=== PATIENT | male | born 1985 | race American Indian/Alaskan Native ===

== ENCOUNTER 2016-12-24 05:58 | Day surgery (SDC) | payer MEDICAID ==
[2016-12-15 15:03] VITALS: BMI 34.0
[2016-12-24 06:24] VITALS: RESP 20
[2016-12-24] MEDS ORDERED: ceFAZolin 2 GM in Sodium Chloride 0.9% 100 ML IVPB ONE (07:03)
[2016-12-24] MEDS ORDERED: Lidocaine 1% Inj (20ml) IJ ONE (07:03)
[2016-12-24] MEDS ORDERED: Bupivacaine 0.5% 50 ML IJ ONE (07:03)
--- NOTE | 2016-12-24 07:07 | CP.SDSHP ---
Same Day Surgery H & P - History Proposed Procedure: Debridement of L leg ulcer, Removal of hardware foot Pre-Op Diagnosis: Left leg wound, paiful hardware in left leg - Allergies Allergies: Allergies nut - unspecified Allergy (Verified 02/21/16 14:30) ANAPHYLAXIS shellfish derived Allergy (Verified 02/21/16 14:30) ANAPHYLAXIS - Physical Exam Vital Signs: Vital Signs 12/24/16 12/24/16 06:23 06:26 Temperature 98.7 F Pulse Rate 95 H 95 H Respiratory 20 Rate Blood Pressure 144/90 O2 Sat by Pulse 99 Oximetry Mental Status: Alert & Oriented x3 Neuro: WNL Heart: WNL Lungs: WNL - {Optional Preform as Required} Integument: Other Ortho: Other - Impression Impression: Pt was seen and examined in SDS. Pt NPO status was confirmed. All Pre-op testing and clearance was in the chart. Pt has exhausted all conservative treatment at this time and is opting for surgical intervention. Pt was explained procedure and post-operative course. All pt's questions were answered to satisfaction. No guarantees were made. Pt understands all risks, benefits and complications of procedure. Pt will follow-up with Dr. Sanchez Short Stay Discharge - Short Stay Discharge Admitting Diagnosis/Reason for Visit: T81.31X Disposition: HOME/ ROUTINE Referrals: Yolanda Hilton MD [Primary Care Provider] - Additional Instructions (Diet, Activity): Patient in good/stable condition for discharge home. Pt to resume medications per medical reconciliation. Resume regular diet. Please keep dressing clean, dry, & intact to surgical site, use plastic bag over bandage for showering, wear post op shoe at all times when ambulating, call clinic if you see signs of infection (redness, swelling, malodor), please make an appointment to see Dr. Sanchez in office/clinic within 1 week for post-op check. Progress Note/Discharge Note with Instructions: - Patient evaluated bedside in recovery s/p surgical procedure. - After surgical procedure patient in NAD - (+) Void, (+) Appetite - Capillary refill time <3s and NVSI intact. - Patient denies complaints at this time - Post operative instructions and plan of care explained to patient at length. - Pt. acknowledges understanding. - Patient stable for DC per podiatric surgery
--- NOTE | 2016-12-24 07:13 | CP.PCM.PN ---
Subjective - Date & Time of Evaluation Date of Evaluation: 12/24/16 Time of Evaluation: 07:09 - Subjective Subjective: 31 y/o male with no significant PMHx seen at bedside in [facility] for left leg wound debridement and removal of painful hardware. Patient states that he sustained the wounds after the injury to the left ankle. Patient states that he has been NPO since midnight and denies of any adverse reaction to anesthesia. Patient denies of any recent F/N/V/C/SOB/CP today. PMHx: Denies PSHx: Denies Allergies: nuts Objective - Vital Signs/Intake and Output Vital Signs (last 24 hours): Temp Pulse Resp BP Pulse Ox 98.7 F 95 H 20 144/90 99 12/24/16 06:23 12/24/16 06:26 12/24/16 06:23 12/24/16 06:23 12/24/16 06:23 - Medications Medications: Current Medications Bupivacaine HCl (Marcaine 0.5% 50 Ml) 50 ml IJ ONCE ONE Stop: 12/24/16 07:04 Cefazolin Sodium 2 gm/ Sodium (Chloride) 100 mls @ 100 mls/hr IVPB ONCE ONE Stop: 12/24/16 08:02 Sodium Chloride (Sodium Chloride 0.9%) 1,000 mls @ 120 mls/hr IV .Q8H20M JASSI Stop: 12/25/16 07:03 Lidocaine HCl (Lidocaine 1% (20ml)) 20 ml IJ ONCE ONE Stop: 12/24/16 07:04 - Constitutional Appears: Well, Non-toxic, No Acute Distress - Extremities Exam Additional comments: Left LE exam: VASC: DP/PT pulses are palpable 2/4, Cap refill time: < 3 sec to all digits, Temp gradient: Warm to cool from proximal to distal, non-pitting edema noted on the distal left leg as well as dorsum of the foot DERM: diffuse approximately 1 cm x 1 cm wounds noted on the medial and lateral aspect of the left leg, no active drainage, no purulence, no malodor, no tunneling, no undermining NEURO: protective sensation grossly intact ORTHO: Mild tenderness on passive and active ROM at the left ankle joint, no pain on palpation of the wounds - Neurological Exam Neurological Exam: Alert, Awake, Oriented x3 - Psychiatric Exam Psychiatric exam: Normal Affect, Normal Mood Assessment and Plan - Assessment and Plan (Free Text) Assessment: 31 y/o male seen at bedside in [facility] for left leg wound debridement and possible removal of painful hardware Plan: Pt was seen and examined in [facility] Pt NPO status was confirmed All Pre-op testing and clearance was in the chart Pt has exhausted all conservative treatment at this time and is opting for surgical intervention Pt was explained procedure and post-operative course All pt's questions were answered to satisfaction No guarantees were made Pt understands all risks, benefits and complications of procedure Pt will follow-up with Dr. Sanchez
[2016-12-24] MEDS ORDERED: ePHEDrine 50 mg/ml Inj ONE (07:15)
[2016-12-24] MEDS ORDERED: Propofol 10 mg/ml Inj (20 ML) ONE (07:15)
[2016-12-24] MEDS ORDERED: Sodium Chloride 0.9% 1,000 ML IV SCH (07:15)
[2016-12-24] MEDS ORDERED: Rocuronium 10 mg/ml (5 ml) ONE (07:15)
[2016-12-24] MEDS ORDERED: Succinylcholine 200 mg/10 ml Inj IV ONE (07:15)
[2016-12-24] MEDS ORDERED: Lidocaine 2% MPF (5 ml) Inj ONE (07:16)
[2016-12-24] MEDS ORDERED: Bupivacaine 0.5% Inj(30mL) ONE (07:32)
[2016-12-24] MEDS ORDERED: Lidocaine 1% Inj (20ml) ONE (07:32)
[2016-12-24] MEDS ORDERED: Dexamethasone 4 mg/1 ml ONE (07:32)
[2016-12-24] MEDS ORDERED: Lactated Ringer's 1,000 ML IV ONE ×2 (07:45→08:50)
[2016-12-24] MEDS ORDERED: Midazolam 2 MG/2 ML VIAL ONE (07:50)
[2016-12-24] MEDS ORDERED: Sodium Chloride 0.9% 200 ML IV ONE (07:50)
[2016-12-24] MEDS ORDERED: Esmolol 100 mg/10ml Inj IV ONE (08:21)
--- NOTE | 2016-12-24 08:59 | PCM.SURG1 ---
Surgeon's Initial Post Op Note - Surgeon's Notes Surgeon: Dr. Sanchez DPM Auditing Specialist: Dr. Arzate PGY-1 Type of Anesthesia: General LMA Anesthesia Administered By: Dr. Landers Pre-Operative Diagnosis: Left leg non-healing surgical wounds, left leg painful hardware Operative Findings: see operative report. I: 20cc 1:1 mix 1% Lidocaine pl and 0.5% Marcaine pl. M: Epifix 4.0 x 4.5cm allograft. tourniquet time 35 min Post-Operative Diagnosis: same Operation Performed: left leg wound debridement, left leg removal of hardware Specimen/Specimens Removed: synthes screw Estimated Blood Loss: EBL {In ML}: 2 Blood Products Given: N/A Drains Used: No Drains Post-Op Condition: Good Date of Surgery/Procedure: 12/24/16 Time of Surgery/Procedure: 07:50
[2016-12-24] MEDS ORDERED: Oxycodone/Acetaminophen 5/325 mg Tab PO PRN ×2 (09:00)
[2016-12-24] MEDS ORDERED: HYDROmorphone 0.5 mg/0.5 ml ISec ONE (09:17)
[2016-12-24] MEDS: HYDROmorphone 0.5 mg/0.5 ml ISec IVP PRN ×3 (09:25→09:55)
[2016-12-24 11:33] VITALS: BP 114/64; PULSE 79; TEMP 98; O2SAT 98
--- NOTE | 2016-12-24 21:06 | PCM.OP ---
Operative Report - Operative Report Date of Surgery/Procedure: 12/24/16 Time of Surgery/Procedure: 07:45 Surgeon: Dr. Indra Sanchez Shellfish Harvester: Dr. Coleen Arzate Anesthesia/Sedation: Dr. Landers. general LMA Pre-Operative Diagnosis: Left leg non-healing wounds, left leg painful hardware Post-Operative Diagnosis: Left leg non-healing wounds, left leg painful hardware Indication for Surgery: The patient is a 31 year old male with the above diagnoses. The patient has exhausted all conservative treatment at this time and now requests surgical intervention. The patient signed the consent after careful explanation of risks, benefits, complication and alternatives for surgical procedure. No guarantees were given nor implied. Operative Findings: The patient was brought in to the operating room and placed on the operating room table in a supine position. Timeout was performed for identification of the correct patient and procedure. The left leg was then prepped and draped in normal sterile manner. Procedure/Operation Description: Attention was then directed to the left anteromedial ankle to the site of the patients non-healing wounds at prior surgical site. A 0.4cm diameter circular incision was made surrounding the distal most wound of the anteromedial ankle. The incision was deepened through the subcutaneous tissues using sharp and blunt dissection all the way down to bone. Care was taken to identify and retract all vital neurovascular structures. The screw was then visualized through the incision. Using a 2.7 synthes cannulated star shaped screw package delivery driver, a prominent screw was removed from the 2.7/3.5 VA-LCP plate. The wound was then flushed with copious amount of sterile normal saline solution. Attention was then directed to an additional 0.2cm diameter circular wound proximal to previous wound. A curette was then utilized to debride the wound and trigger healing. This process was then repeated to a third circular wound, approximately 0.2cm in diameter, at the anterolateral ankle. All wounds were then scrubbed copiously with a chlorhexidine scrub brush. At this time, a 4.0 cm x 4.5cm Epifix allograft was then applied to all three wound sites. The patient then received 20 cc of a 1:1 mixture of 1% lidocaine plain and 0.5% marcaine plain in a proximal ankle block type fashion. The left leg and ankle was then dressed with Adaptic, DSD and ELLA bandage. The attending was present the entire case. Estimated Blood Loss: 2cc Blood Replaced: none Complications: none Specimen: Synthes 2.7 screw Discharge & Condition: The patient tolerated the anesthesia and procedure well and was escorted to the recovery room with vital signs stable and neurovascular status intact to the right and left foot. This patient will be full weightbearing in a surgical shoe and will follow up with Dr. Sanchez in his office.
== END 2016-12-24 11:56 | disposition home or self-care (01) ==
LOC: H.OPSURG 05:58
PROVIDERS: ATTEND Podiatrist Foot & Ankle Surgery
DX: T84.84XA Pain due to internal orthopedic prosthetic devices, implants and grafts, initial encounter (principal); T81.89XA Other complications of procedures, not elsewhere classified, initial encounter; X58.XXXA Exposure to other specified factors, initial encounter; J45.909 Unspecified asthma, uncomplicated; F17.210 Nicotine dependence, cigarettes, uncomplicated
CPT/HCPCS: 20680; 88304; 97161; G8978; G8979; G8980; J0330; J0690; J1170; J2250; J2405; J2704; J3010; J7030; J7040; J7120; Q4131

== ENCOUNTER 2017-05-20 12:54 | Observation (INO) | payer MEDICAID ==
[2017-05-17 13:26] VITALS: BMI 36.0
[2017-05-20] MEDS ORDERED: Lactated Ringer's 1,000 ML IV ONE ×2 (14:02→18:30)
--- NOTE | 2017-05-20 15:12 | CP.PCM.PN ---
Subjective - Date & Time of Evaluation Date of Evaluation: 05/20/17 Time of Evaluation: 15:27 - Subjective Subjective: 31 y/o male with no significant PMHx seen at bedside in [facility] for ankle removal of painful hardware. Patient states that he sustained the wounds after the injury to the left ankle. Patient states that he has been NPO since midnight and denies of any adverse reaction to anesthesia. Patient denies of any recent F /N/V/C/SOB/CP today. PMHx: Denies PSHx: Denies Allergies: nuts Objective - Vital Signs/Intake and Output Vital Signs (last 24 hours): Temp Pulse Resp BP Pulse Ox 98.2 F 91 H 20 147/77 100 05/20/17 13:34 05/20/17 13:37 05/20/17 13:34 05/20/17 13:34 05/20/17 13:34 - Constitutional Appears: Well, Non-toxic, No Acute Distress - Extremities Exam Additional comments: Left LE exam: Dressing is clean, dry and intact VASC: DP/PT pulses are palpable 2/4, Cap refill time: < 3 sec to all digits, Temp gradient: Warm to cool from proximal to distal, non-pitting edema noted on the distal left leg as well as dorsum of the foot DERM: diffuse approximately 1 cm x 1 cm wounds noted on the medial and lateral aspect of the left leg, no active drainage, no purulence, no malodor, no tunneling, no undermining NEURO: protective sensation grossly intact ORTHO: Mild tenderness on passive and active ROM at the left ankle joint, no pain on palpation of the wounds - Neurological Exam Neurological Exam: Alert, Awake, Oriented x3 - Psychiatric Exam Psychiatric exam: Normal Affect, Normal Mood Assessment and Plan - Assessment and Plan (Free Text) Assessment: 31 y/o male seen at bedside in [facility] for left ankle removal of painful hardware Plan: Pt was seen and examined in [facility] Pt NPO status was confirmed All Pre-op testing and clearance was in the chart Pt has exhausted all conservative treatment at this time and is opting for surgical intervention Pt was explained procedure and post-operative course All pt's questions were answered to satisfaction No guarantees were made Pt understands all risks, benefits and complications of procedure Pt will follow-up with Dr. Sanchez
--- NOTE | 2017-05-20 15:14 | CP.SDSHP ---
Same Day Surgery H & P - History Proposed Procedure: Removal of painful hardware from Left ankle Pre-Op Diagnosis: Painful hardware in left ankle - Allergies Allergies: Allergies nut - unspecified Allergy (Verified 02/21/16 14:30) ANAPHYLAXIS shellfish derived Allergy (Verified 02/21/16 14:30) ANAPHYLAXIS - Physical Exam Vital Signs: Vital Signs 05/20/17 05/20/17 13:34 13:37 Temperature 98.2 F Pulse Rate 80 91 H Respiratory 20 Rate Blood Pressure 147/77 O2 Sat by Pulse 100 Oximetry - {Optional Preform as Required} Ortho: Other - Date & Time Date: 05/20/17 Time: 15:14 Short Stay Discharge - Short Stay Discharge Admitting Diagnosis/Reason for Visit: T84.498D Disposition: HOME/ ROUTINE Referrals: Yolanda Hilton MD [Primary Care Provider] - Progress Note/Discharge Note with Instructions: Patient will be admitted to the hospital for observation for 23 hours
[2017-05-20] MEDS ORDERED: Lidocaine 1% Inj (20ml) IJ ONE ×3 (15:15→15:56)
[2017-05-20] MEDS ORDERED: ceFAZolin IV 2 gm in Dextrose 2 GM/50 ML BAG IVPB ONE (15:15)
[2017-05-20] MEDS ORDERED: Bupivacaine 0.5% Inj(30mL) IJ ONE (15:15)
[2017-05-20] MEDS ORDERED: Propofol 10 mg/ml Inj (20 ML) ONE (15:31)
[2017-05-20] MEDS ORDERED: Midazolam 2 MG/2 ML VIAL ONE (15:31)
[2017-05-20] MEDS ORDERED: Lidocaine 1% 5ml Abboject IV ONE (15:31)
[2017-05-20] MEDS ORDERED: Lidocaine 1% Inj (20ml) ONE (15:39)
[2017-05-20] MEDS ORDERED: Bupivacaine 0.5% Inj(30mL) ONE (15:39)
[2017-05-20] MEDS ORDERED: Bupivacaine 0.5% 50 ML IJ ONE ×2 (15:56)
[2017-05-20] MEDS ORDERED: HYDROmorphone 0.5 mg/0.5 ml ISec IVP PRN (19:26)
[2017-05-20] MEDS ORDERED: Lactated Ringer's 1,000 ML IV SCH (19:30)
--- NOTE | 2017-05-20 19:52 | PCM.SURG1 ---
Surgeon's Initial Post Op Note - Surgeon's Notes Surgeon: Dr. Indra Sanchez DPM Machine Stitcher: Dr. Thomas Sanford DPM PGY-1, Dr. Emery Trejo DPM PGY-1 Type of Anesthesia: General LMA, Local Anesthesia Administered By: Dr. Anya APODACA Pre-Operative Diagnosis: Painful hardware in left ankle Operative Findings: See dictation. M: 3-0 vicryl, 2-0 vicryl, 4-0 prolene. I: 20 cc of 1:1 mixture of 1% lidocain plain: 0.5% marcain plain Post-Operative Diagnosis: Same Operation Performed: Removal of hardware from left ankle Specimen/Specimens Removed: Ankle hardware Estimated Blood Loss: EBL {In ML}: 40 Blood Products Given: N/A Drains Used: No Drains Post-Op Condition: Good Date of Surgery/Procedure: 05/20/17 Time of Surgery/Procedure: 19:15
[2017-05-20] MEDS: Sodium Chloride 0.9% 1,000 ML IV SCH (22:00)
[2017-05-20] MEDS: Oxycodone/Acetaminophen 5/325 mg Tab PO PRN (22:31)
[2017-05-21] MEDS: Oxycodone/Acetaminophen 5/325 mg Tab PO PRN ×3 (00:28→05:02)
[2017-05-21] MEDS: Sodium Chloride 0.9% 1,000 ML IV SCH (06:30)
[2017-05-21 08:16] VITALS: RESP 20; O2SAT 96
[2017-05-21] MEDS ORDERED: Pantoprazole 40 mg EC Tab PO SCH (09:00)
--- NOTE | 2017-05-21 09:13 | RAD ---
PROCEDURE: HISTORY: s/p left ankle surgery COMPARISON: 04/22/2016 TECHNIQUE: Multiple views FINDINGS: Status post removal previously noted orthopedic hardware with new fixation pins and screws in the distal fibula and distal tibia with numerous subchondral lucencies particularly along the tibial plafond. Good anatomic alignment. Diffuse soft tissue swelling. Evidence of disuse osteoporosis. IMPRESSION: As above.
--- NOTE | 2017-05-21 09:14 | CP.PCM.DIS ---
Provider - Provider Date of Admission: 05/20/17 19:27 Attending physician: Indra Sanchez DPM Primary care physician: Yolanda Hilton MD Hospital Course - Lab Results Lab Results: Micro Results 05/20/17 19:00 Foot - Left Gram Stain - Final Most Recent Lab Values POC Glucose (mg/dL) 97 mg/dL (65-110) 05/21/17 05:00 Discharge Plan - Follow Up Plan Condition: GOOD Disposition: HOME/ ROUTINE Referrals: Yolanda Hilton MD [Primary Care Provider] -
--- NOTE | 2017-05-21 11:15 | CP.PCM.PN ---
Subjective - Date & Time of Evaluation Date of Evaluation: 05/21/17 Time of Evaluation: 07:30 - Subjective Subjective: 32 year old male with no significant PMHx was seen and evaluated at bedside this morning 1 day s/p removal of hardware from left ankle. Patient appears to be resting comfortably in bed during the time of the visit. Patient is AAOx3 and is in NAD. Patient denied of any acute overnight events. Patient reports that he has little pain today but he is managing it well. Patient denies of overnight F/N/V/C/SOB/CP/headache/diarrhea. Patient denies of any other pedal complains at this time. Patient reports that he is anxious to go home. Objective - Vital Signs/Intake and Output Vital Signs (last 24 hours): Temp Pulse Resp BP Pulse Ox 98.4 F 92 H 20 137/88 96 05/21/17 08:15 05/21/17 08:15 05/21/17 08:15 05/21/17 08:15 05/21/17 08:15 Intake and Output: 05/21/17 05/21/17 06:59 18:59 Intake Total 200 Balance 200 - Medications Medications: Current Medications Acetaminophen (Tylenol 325mg Tab) 650 mg PO Q6 PRN PRN Reason: Pain, Mild (1-3) Sodium Chloride (Sodium Chloride 0.9%) 1,000 mls @ 140 mls/hr IV .Q7H9M [facility] Stop: 05/21/17 15:16 Last Admin: 05/21/17 06:30 Dose: Not Given Oxycodone/Acetaminophen (Percocet 5/325 Mg Tab) 1 tab PO Q4 PRN PRN Reason: Pain, moderate (4-7) Stop: 05/23/17 19:23 Last Admin: 05/21/17 05:02 Dose: 1 tab Oxycodone/Acetaminophen (Percocet 5/325 Mg Tab) 2 tab PO Q4 PRN PRN Reason: Pain, severe (8-10) Stop: 05/23/17 19:23 Last Admin: 05/21/17 02:23 Dose: 2 tab Pantoprazole Sodium (Protonix Ec Tab) 40 mg PO DAILY [facility] Last Admin: 05/21/17 09:24 Dose: 40 mg - Constitutional Appears: Well, Non-toxic, No Acute Distress - Head Exam Head Exam: ATRAUMATIC - Neck Exam Neck Exam: Full ROM, Normal Inspection - Respiratory Exam Respiratory Exam: Clear to Ausculation Bilateral, NORMAL BREATHING PATTERN. absent: Rhonchi, Wheezes - Cardiovascular Exam Cardiovascular Exam: REGULAR RHYTHM, +S1, +S2 - GI/Abdominal Exam GI & Abdominal Exam: Soft, Normal Bowel Sounds - Rectal Exam Rectal Exam: Deferred - Extremities Exam Extremities Exam: Normal Capillary Refill. absent: Calf Tenderness Additional comments: Dressing on the LLE is clean, dry and intact with no strike through. Active ROM at the MTPJ is present, Cap refill time: < 3 sec to all digits - Back Exam Back Exam: Full ROM, NORMAL INSPECTION - Neurological Exam Neurological Exam: Alert, Awake, Oriented x3 - Psychiatric Exam Psychiatric exam: Normal Affect, Normal Mood Assessment and Plan - Assessment and Plan (Free Text) Assessment: 32 year old male with no significant PMHx was evaluated 1 day s/p removal of painful hardware from left ankle Plan: -Patient in good/stable condition for discharge home -Patient to resume medications per medical reconciliation -Resume regular diet -Please keep dressing clean, dry, & intact to surgical site -Use plastic bag over bandage for showering - do not get the surgical site wet -Remain non-weight bearing to Left LE using crutches -Prescriptions provided -Call clinic if you see signs of infection (redness, swelling, malodor) or develop fever, nausea, vomiting -Please make an appointment to see Dr. Sanchez in office/clinic on Tuesday
[2017-05-21 11:36] VITALS: BP 130/83; PULSE 93; TEMP 97.6
--- NOTE | 2017-05-27 11:28 | PCM.OP ---
Operative Report - Operative Report Date of Surgery/Procedure: 05/20/17 Time of Surgery/Procedure: 19:15 Surgeon: Dr. Indra Sanchez DPM Hourly Shift: Dr. Thomas Sanford DPM PGY-1, Dr. Emery Trejo DPM PGY-1 Anesthesia/Sedation: General LMA, Local Pre-Operative Diagnosis: Painful hardware in left ankle Estimated Blood Loss: 40 Complications: None Discharge & Condition: Good, stable
--- NOTE | 2017-05-30 08:21 | OP ---
PROCEDURE DATE: 05/20/2017 PREOPERATIVE DIAGNOSIS: Painful retained hardware of left ankle. POSTOPERATIVE DIAGNOSIS: S/p painful retained hardware of left ankle. NAME OF PROCEDURE: Removal of painful hardware, left ankle. SURGEON: Indra Gibbs DPM CARPENTER FOREMAN: Thomas Sanford DPM, PGY-1 and Emery Trejo DPM, PGY-1 TYPE OF ANESTHESIA: General LMA with local. ANESTHESIA ADMINISTERED BY: Dr. Moore. INDICATIONS: The patient is a 32-year-old male with the above diagnosis. The patient has exhausted all conservative treatment at this time and now requires surgical intervention. The patient signed a consent after careful explanation of risks, benefits, complications, and alternatives for surgical procedure. No guarantees were given nor implied. N.p.o. status was confirmed prior to taking the patient into the OR. PREPARATION: The patient was brought into the operating room and placed on the operating room table in a supine position. Time-out was performed for identification of the correct patient and procedure. After induction of general LMA anesthesia, the patient received a total of 20 mL of 1:1 mixture of 1% lidocaine plain and 0.5% Marcaine plain in a local block fashion around the entirety of his left ankle. The left lower extremity was then prepped and draped in the normal sterile manner and the procedure began. A thigh tourniquet was used during the procedure at a pressure setting of 350 mmHg. DESCRIPTION OF PROCEDURE: PROCEDURE 1: Attention was then turned to the anterior portion of the ankle. Using a fresh #15 blade and hemostats, a sharp dissection was made down to the level of bone with care taken to ensure that the no neurovascular structures were damaged during dissection. It was noted during dissection that a small portion of the extensor hallucis longus tendon was partially lacerated. This was immediately sutured back together with good coaptation using 0 Vicryl suture. Once dissection was made down to the level of bone and anterior ankle plate with screws was noted to the anterior portion of the tibia with some bone overlying the plate itself. This bone was removed using an osteotome and mallet and dissection was continued again with care taken to avoid all neurovascular structures until the entirety of the anterior ankle plate could be identified. At this time, a screw driver/merchandiser was utilized to remove all screws from the anterior ankle plate with care taken to ensure that all screws were excised from the surgical field. The anterior ankle plate was then removed from the surgical site as well. It was noted during removal of the anterior ankle plate that some of the bleeding appeared to also contained purulent drainage from the bone causing suspicion for osteomyelitis; as a result a wound culture was taken of the sanguinopurulent drainage and sent to lab for further examination. The anterior surgical site was then closed using 2-0 Vicryl, 3-0 Vicryl deep and 4-0 Prolene superficially. Attention was then turned to the lateral ankle where sharp dissection was made down through level bone using a new #15 blade as well as hemostat. Care was taken to ensure that all neurovascular, tendinous and ligamentous structures were avoided. Once dissection was completed, it was noted that there was a lateral ankle plate present. The lateral ankle plate was removed using a screwdriver and it was ensured that all screws as well as plates were excised from the surgical field. The surgical site was then sutured closed using 2-0 Vicryl, 3-0 Vicryl deep, and 4-0 Prolene superficially. All surgical sites were flushed with copious amount of normal sterile saline before they were sutured closed. With the lateral surgical site with no signs of osteo or purulent drainage were noted. The surgical sites were then dressed with Xeroform, dry sterile dressings, a light ELLA bandage and procedure was completed. POSTOPERATIVE CONDITION: The patient tolerated the anesthesia and procedure well and was escorted to the recovery room with vital signs stable and neurovascular status intact to the left lower extremity. The patient is to remain nonweightbearing to the left lower extremity and is to keep dressings clean, dry and intact. The patient will follow up with Dr. Gibbs in his private office in 1 week's time to ensure that the healing process is occurring in an appropriate manner. Ez Sanford DPM Indra Gibbs DPM MTDWes
== END 2017-05-21 13:05 | disposition home or self-care (01) ==
LOC: H.OPSURG 12:54 → H.MEDSURG1 19:27
PROVIDERS: ADMIT Podiatrist Foot & Ankle Surgery; ATTEND Podiatrist Foot & Ankle Surgery
DX: T84.84XA Pain due to internal orthopedic prosthetic devices, implants and grafts, initial encounter (principal); A49.02 Methicillin resistant Staphylococcus aureus infection, unspecified site; Y83.1 Surgical operation with implant of artificial internal device as the cause of abnormal reaction of the patient, or of later complication, without mention of misadventure at the time of the procedure; Z91.013 Allergy to seafood; Z91.018 Allergy to other foods
CPT/HCPCS: 20680; 73610; 82948; 87070; 87181; 88304; 97161; G0378; J0690; J1170; J1885; J2250; J2405; J2704; J2765; J3010; J7030; J7040; J7120

== ENCOUNTER 2017-05-24 10:14 | Inpatient (IN) | payer MEDICAID ==
[2017-05-24 10:14] VITALS: BMI 36.0
--- NOTE | 2017-05-24 11:42 | ED PDOC ---
Lower Extremity Pain/Injury Time Seen by Provider: 05/24/17 10:59 Chief Complaint (Nursing): Lower Extremity Problem/Injury Chief Complaint (Provider): Ankle problem History Per: Patient Additional Complaint(s): This is a 32 yo male patient POD#[address] ankle with Dr[address] Sanchez. Pt reports increased pain and swelling. Per patient he has a lot of pain to the left ankle today, describes it as sharp and rates the pain as a 10/10. Reports uneventful overnight, but does admit to some trouble sleeping due to pain. Denies any numbness or tingling to the foot or ankle. Denies calf pain. Says he is tolerating his diet well, reports urinating normally, last BM yesterday. Pt denies f/n/v/c/sob/cp/weakness/ dizziness/headache. Denies any other complaints at this time. Past Medical History Reviewed: Historical Data, Nursing Documentation, Vital Signs Vital Signs: Last Vital Signs Temp 98.2 F 05/24/17 11:11 Pulse 91 H 05/24/17 11:11 Resp 21 05/24/17 11:11 BP 143/81 05/24/17 11:11 Pulse Ox 98 05/24/17 11:11 - Medical History PMH: No Chronic Diseases Denies: Chronic Kidney Disease - Surgical History Other surgeries: ORIF - Family History Family History: States: No Known Family Hx - Social History Current smoker - smoking cessation education provided: No Ex-Smoker (has not smoked in the last 12 months): Yes Alcohol: Social Drugs: Denies - Immunization History Hx Tetanus Toxoid Vaccination: No Hx Influenza Vaccination: No Hx Pneumococcal Vaccination: No - Home Medications Home Medications: Ambulatory Orders Medication Instructions Recorded Ibuprofen [Motrin Tab] 800 mg PO Q8H PRN 05/24/17 oxyCODONE/Acetaminophen [Percocet 1 tab PO Q8H PRN 05/24/17 5/325 mg Tab] - Allergies Allergies/Adverse Reactions: Allergies Allergy/AdvReac Type Severity Reaction Status Date / Time nut - unspecified Allergy ANAPHYLAXIS Verified 05/24/17 11:11 shellfish derived Allergy ANAPHYLAXIS Verified 05/24/17 11:11 Review of Systems ROS Statement: Except As Marked, All Systems Reviewed And Found Negative Musculoskeletal: Positive for: Leg Pain Physical Exam - Reviewed Nursing Documentation Reviewed: Yes Vital Signs Reviewed: Yes - Physical Exam Appears: Positive for: Well, Non-toxic, No Acute Distress Head Exam: Positive for: ATRAUMATIC, NORMAL INSPECTION, NORMOCEPHALIC Skin: Positive for: Normal Color, Warm, DRY Eye Exam: Positive for: EOMI, Normal appearance, PERRL ENT: Positive for: Normal ENT Inspection Neck: Positive for: Normal, Painless ROM Cardiovascular/Chest: Positive for: Regular Rate, Rhythm Respiratory: Positive for: CNT, Normal Breath Sounds Gastrointestinal/Abdominal: Positive for: Normal Exam, Bowel Sounds, Soft Back: Positive for: Normal Inspection Extremity: Positive for: Other (Exam prefomred by podiatry team) Neurologic/Psych: Positive for: Alert, Oriented - Laboratory Results Result Diagrams: 05/24/17 12:10 05/24/17 12:10 - ECG O2 Sat by Pulse Oximetry: 98 Medical Decision Making Medical Decision Making: podiatry consult obtained, resident aware of Pt being in ED and presented to see and evaluate Pt at bedside. See consult note Diagnostics ordered. Pt sent to IR in order for PICC line to be obtained Armani Villanueva contacted and arraignments made for admission Disposition - Clinical Impression Clinical Impression: MRSA (methicillin resistant staph aureus) culture positive, Ankle pain - Patient ED Disposition Is Patient to be Admitted: Yes - Disposition Disposition Time: 16:11 Condition: STABLE - Pt Status Changed To: Hospital Disposition Of: Observation - POA Present On Arrival: None
--- NOTE | 2017-05-24 12:33 | RAD ---
PROCEDURE: Left Ankle Radiographs. HISTORY: f/o films s/p fxr COMPARISON: Left ankle radiographs dated 05/20/2017 FINDINGS: Postsurgical changes of the distal tibia and fibula with fixation pins and screws are redemonstrated without significant change in appearance. Tracts from removed hardware apparent. No definite acute fracture or other significant interval change is identified. IMPRESSION: Postsurgical changes as above.
[2017-05-24 12:37] LABS: BASO # 0.1 K/uL (0.0-0.2); BASO % 1.3 % (0.0-2.0); EOS # 0.5 K/uL (0.0-0.7); EOS % 4.8 % (0.0-4.0); HEMOGLOBIN 12.5 g/dL (12.0-18.0); LYMPH # 3.4 K/uL (1.0-4.3); LYMPH % 30.3 % (20.0-40.0); MEAN CELL VOLUME 74.1 fl (80.0-94.0); MEAN CORPUSCULAR HEMOGLOBIN 24.1 pg (27.0-31.0); MEAN CORPUSCULAR HGB CONC 32.6 g/dL (33.0-37.0); MONO # 0.7 K/uL (0.0-0.8); MONO % 6.6 % (0.0-10.0); NEUT # 6.4 K/uL (1.8-7.0); NRBC % 0.1 % (0.0-0.0); RBC 5.19 Mil/uL (4.40-5.90); RED CELL DISTRIBUTION WIDTH 15.6 % (11.5-14.5); WHITE BLOOD COUNT 11.1 K/uL (4.8-10.8)
[2017-05-24 12:39] LABS: ALB/GLOB RATIO 1.1 (1.0-2.1); ALT/SGPT 42 U/L (21-72); AST/SGOT 29 U/L (17-59); BLOOD UREA NITROGEN 12 mg/dl (9-20); CALCIUM 9.3 mg/dL (8.4-10.2); GFR AFRICAN-AMERICAN > 60; GFR NON-AFRICAN AMERICAN > 60
[2017-05-24 12:44] LABS: INR 1.2 (0.9-1.2); PARTIAL THROMBOPLASTIN TIME 31.3 Seconds (25.6-37.1); PROTHROMBIN TIME 13.7 Seconds (9.8-13.1)
[2017-05-24] MEDS ORDERED: Lidocaine 1% Inj (20ml) ONE (13:16)
[2017-05-24] MEDS ORDERED: Oxycodone/Acetaminophen 5/325 mg Tab PO PRN ×3 (13:20→22:58)
--- NOTE | 2017-05-24 13:25 | PCM.SURG1 ---
Surgeon's Initial Post Op Note - Surgeon's Notes Surgeon: Rivera De León MD [employer] Director: NONE Type of Anesthesia: Local Pre-Operative Diagnosis: Foot infection Operative Findings: US showed a patent right basilic vein Post-Operative Diagnosis: Foot infection Operation Performed: Single lumen picc placement right arm, 37 cm. Tip is in the SVC. Specimen/Specimens Removed: none Estimated Blood Loss: EBL {In ML}: 2 Blood Products Given: N/A Drains Used: No Drains Post-Op Condition: Fair Date of Surgery/Procedure: 05/24/17 Time of Surgery/Procedure: 13:20
[2017-05-24] MEDS ORDERED: Oxycodone/Acetaminophen 5/325 mg Tab ONE (14:46)
--- NOTE | 2017-05-24 15:22 | CP.PCM.CON ---
History of Present Illness - History of Present Illness History of Present Illness: 31 year old male with no significant PMHx seen and evaluated in ED 3 days s/p left ankle painful hardware removal. 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 Patient denies of any recent F/N/V/C/SOB/CP today. Patient reports of mild pain to his ankle but he is managing it well with medications. Patient denies of any other pedal complains at this time. PMHx: Denies PSHx: Denies Allergies: nuts Review of Systems - Constitutional Constitutional: As Per HPI Past Patient History - Tetanus Immunizations Tetanus Immunization: Unknown - Past Medical History & Family History Past Medical History?: No - Past Social History Smoking Status: Light Smoker < 10 Cigarettes Daily - CARDIAC Hx Cardiac Disorders: No - PULMONARY Hx Respiratory Disorders: No Other/Comment: smoker - 10 sticks a day - NEUROLOGICAL Hx Neurological Disorder: No - HEENT Hx HEENT Problems: No - RENAL Hx Chronic Kidney Disease: No - ENDOCRINE/METABOLIC Hx Endocrine Disorders: No - HEMATOLOGICAL/ONCOLOGICAL Hx Blood Disorders: No - INTEGUMENTARY Hx Dermatological Problems: No - MUSCULOSKELETAL/RHEUMATOLOGICAL Hx Musculoskeletal Disorders: No Hx Falls: Yes - GASTROINTESTINAL Hx Gastrointestinal Disorders: No - GENITOURINARY/GYNECOLOGICAL Hx Genitourinary Disorders: No - PSYCHIATRIC Hx Psychophysiologic Disorder: No Hx Emotional Abuse: No Hx Physical Abuse: No Hx Substance Use: No - SURGICAL HISTORY Hx Surgeries: Yes Hx Orthopedic Surgery: Yes (left foot) Other/Comment: removal of screw left ankle,metal placed on left tibia - ANESTHESIA Hx Anesthesia: Yes Hx Anesthesia Reactions: No Hx Malignant Hyperthermia: No Meds Allergies/Adverse Reactions: Allergies Allergy/AdvReac Type Severity Reaction Status Date / Time nut - unspecified Allergy ANAPHYLAXIS Verified 05/24/17 11:11 shellfish derived Allergy ANAPHYLAXIS Verified 05/24/17 11:11 - Medications Medications: Current Medications Vancomycin HCl 1 gm/ Sodium (Chloride) 250 mls @ 166.667 mls/hr IVPB Q12 JASSI PRN Reason: Protocol Ibuprofen (Motrin Tab) 800 mg PO Q8H PRN PRN Reason: Pain, moderate (4-7) Oxycodone/Acetaminophen (Percocet 5/325 Mg Tab) 1 tab PO Q8H PRN PRN Reason: Pain, severe (8-10) Stop: 05/27/17 13:21 Last Admin: 05/24/17 14:47 Dose: 1 tab Physical Exam - Constitutional Appears: Well, Non-toxic, No Acute Distress - Extremities Exam Additional comments: VASC: DP/PT pulses are palpable 2/4 B/L. Cap refill time: < 3 seconds to all digits. Skin temperature warm to cool from proximal to distal. mild non-pitting edema noted at the left ankle DERM: Surgical site is well coapted with no active dehiscence; no active drainage, no purulance, no inter digital maceration, nails are cut to hygenic length, no clinical suspicion of active infection NEURO: Epicritic and protective sensation intact ORTHO: mild pain on palpation along the surgical site, no pain during AROM and PROM at the AJ or MTPJ - Neurological Exam Neurological exam: Alert, Oriented x3 - Psychiatric Exam Psychiatric exam: Normal Affect, Normal Mood Results - Vital Signs Recent Vital Signs: Last Vital Signs Temp 98.1 F 05/24/17 13:18 Pulse 74 05/24/17 13:18 Resp 18 05/24/17 13:18 BP 140/74 05/24/17 13:18 Pulse Ox 98 05/24/17 11:44 - Labs Result Diagrams: 05/24/17 12:10 05/24/17 12:10 Labs: Laboratory Results - last 24 hr 05/24/17 05/24/17 05/24/17 12:10 12:10 12:10 WBC 11.1 H RBC 5.19 Hgb 12.5 D Hct 38.5 MCV 74.1 L MCH 24.1 L MCHC 32.6 L RDW 15.6 H Plt Count 352 MPV 8.0 Neut % (Auto) 57.0 Lymph % (Auto) 30.3 [place] % (Auto) 6.6 Eos % (Auto) 4.8 H Baso % (Auto) 1.3 Neut # (Auto) 6.4 Lymph # (Auto) 3.4 [place] # (Auto) 0.7 Eos # (Auto) 0.5 Baso # (Auto) 0.1 PT 13.7 H INR 1.2 APTT 31.3 Sodium 145 Potassium 4.1 Chloride 106 Carbon Dioxide 27 Anion Gap 16 BUN 12 Creatinine 0.8 Est GFR ( Amer) > 60 Est GFR (Non-Af Amer) > 60 Random Glucose 93 Calcium 9.3 Total Bilirubin 0.5 AST 29 ALT 42 Alkaline Phosphatase 79 Total Protein 7.6 Albumin 4.0 Globulin 3.5 Albumin/Globulin Ratio 1.1 Assessment & Plan - Assessment and Plan (Free Text) Assessment: 31 year old male with no significant PMHx was evaluated in ED 3 days s/p left ankle painful hardware removal Plan: Patient seen and evaluated at bedside Discussed patient in details with attending Dr. Sanchez Labs, vitals and charts reviewed - afebrile WBC @ 11.1 Intra-op wound culture shows MRSA (05/20) - Suspicious of OM due to bone quality intra-op Patient received PICC line for assisted IV abx ID consult placed - Dr. Currie, recommendations appreciated Dressing applied using xeroform, DSD, ELLA bandage Thank you for the podiatry consult and allowing to take part in patient care Podiatry to follow patient while in house - Date & Time Date: 05/24/17 Time: 15:30
[2017-05-25] MEDS: Oxycodone/Acetaminophen 5/325 mg Tab PO PRN ×2 (05:28→10:35)
[2017-05-25 06:29] LABS: BASO # 0.2 K/uL (0.0-0.2); BASO % 1.1 % (0.0-2.0); EOS # 0.6 K/uL (0.0-0.7); HEMOGLOBIN 11.7 g/dL (12.0-18.0); LYMPH # 5.8 K/uL (1.0-4.3); LYMPH % 41.6 % (20.0-40.0); MEAN CELL VOLUME 73.6 fl (80.0-94.0); MEAN CORPUSCULAR HEMOGLOBIN 24.9 pg (27.0-31.0); MEAN CORPUSCULAR HGB CONC 33.8 g/dL (33.0-37.0); MEAN PLATELET VOLUME 7.7 fl (7.2-11.7); MONO # 0.9 K/uL (0.0-0.8); MONO % 6.7 % (0.0-10.0); NEUT # 6.4 K/uL (1.8-7.0); NEUT % 46.6 % (50.0-75.0); NRBC % 0.1 % (0.0-0.0); RBC 4.72 Mil/uL (4.40-5.90); RED CELL DISTRIBUTION WIDTH 15.6 % (11.5-14.5); WHITE BLOOD COUNT 13.8 K/uL (4.8-10.8)
[2017-05-25 06:43] LABS: ALB/GLOB RATIO 1.1 (1.0-2.1); ALBUMIN 3.5 g/dL (3.5-5.0); ALT/SGPT 31 U/L (21-72); AST/SGOT 28 U/L (17-59); BLOOD UREA NITROGEN 15 mg/dl (9-20); CALCIUM 8.5 mg/dL (8.4-10.2); GFR AFRICAN-AMERICAN > 60; GFR NON-AFRICAN AMERICAN > 60
--- NOTE | 2017-05-25 07:59 | CP.PCM.HP ---
History of Present Illness - History of Present Illness History of Present Illness: pt admitted for hardware infection to left ankle. no f/c, n/v/d. bw noted. distal pms intact. per podiatry 8 wks anbx-vanco. picc placed yesterday. cm aware of pt. Present on Admission - Present on Admission Any Indicators Present on Admission: No Review of Systems - Musculoskeletal Musculoskeletal: As Per HPI, Arthralgias Past Patient History - Tetanus Immunizations Tetanus Immunization: Unknown - Past Medical History & Family History Past Medical History?: Yes - Past Social History Smoking Status: Current Some Days Smoker - CARDIAC Hx Cardiac Disorders: No - PULMONARY Hx Respiratory Disorders: Yes Hx Asthma: Yes - NEUROLOGICAL Hx Neurological Disorder: No - HEENT Hx HEENT Problems: No - RENAL Hx Chronic Kidney Disease: No - ENDOCRINE/METABOLIC Hx Endocrine Disorders: No - HEMATOLOGICAL/ONCOLOGICAL Hx Blood Disorders: No - INTEGUMENTARY Hx Dermatological Problems: No - MUSCULOSKELETAL/RHEUMATOLOGICAL Hx Musculoskeletal Disorders: No Hx Falls: No - GASTROINTESTINAL Hx Gastrointestinal Disorders: No - GENITOURINARY/GYNECOLOGICAL Hx Genitourinary Disorders: No - PSYCHIATRIC Hx Psychophysiologic Disorder: No Hx Substance Use: No - SURGICAL HISTORY Hx Surgeries: Yes Hx Orthopedic Surgery: Yes (left foot) Other/Comment: removal of screw left ankle,metal placed on left tibia - ANESTHESIA Hx Anesthesia: Yes Hx Anesthesia Reactions: No Hx Malignant Hyperthermia: No Meds Home Medications: Home Medication List Medication Instructions Recorded Confirmed Type Ibuprofen [Motrin Tab] 800 mg PO Q8H PRN #20 tab 05/25/17 Rx Vancomycin/0.9 % Sod Chloride 1 gm IV Q12 #112 plast..bag 05/25/17 Rx [Vanco 1 Gram/250 ml-0.9% NaCl] oxyCODONE/Acetaminophen [Percocet 1 tab PO Q4 PRN #10 tab 05/25/17 Rx 5/325 mg Tab] Allergies/Adverse Reactions: Allergies Allergy/AdvReac Type Severity Reaction Status Date / Time nut - unspecified Allergy ANAPHYLAXIS Verified 05/24/17 11:11 shellfish derived Allergy ANAPHYLAXIS Verified 05/24/17 11:11 Physical Exam - Constitutional Appears: Well, Non-toxic, No Acute Distress - Head Exam Head Exam: ATRAUMATIC, NORMAL INSPECTION, NORMOCEPHALIC - Eye Exam Eye Exam: EOMI, Normal appearance, PERRL Pupil Exam: NORMAL ACCOMODATION, PERRL - ENT Exam ENT Exam: Mucous Membranes Moist, Normal Exam - Neck Exam Neck exam: Positive for: Normal Inspection - Respiratory Exam Respiratory Exam: Clear to Auscultation Bilateral, NORMAL BREATHING PATTERN - Cardiovascular Exam Cardiovascular Exam: REGULAR RHYTHM, RRR, +S1, +S2 - GI/Abdominal Exam GI & Abdominal Exam: Normal Bowel Sounds, Soft. absent: Tenderness - Extremities Exam Extremities exam: Positive for: full ROM, normal capillary refill, normal inspection, pedal pulses present - Back Exam Back exam: NORMAL INSPECTION - Neurological Exam Neurological exam: Alert, CN II-XII Intact, Normal Gait, Oriented x3, Reflexes Normal - Psychiatric Exam Psychiatric exam: Normal Affect, Normal Mood - Skin Skin Exam: Dry, Intact, Normal Color, Warm Results - Vital Signs Recent Vital Signs: Last Vital Signs Temp 98.8 F 05/24/17 23:38 Pulse 78 05/24/17 23:38 Resp 20 05/24/17 23:38 BP 145/89 05/24/17 23:38 Pulse Ox 96 05/24/17 23:38 - Labs Result Diagrams: 05/25/17 05:55 05/25/17 05:55 Labs: Laboratory Results - last 24 hr 05/24/17 05/24/17 05/24/17 12:10 12:10 12:10 WBC 11.1 H RBC 5.19 Hgb 12.5 D Hct 38.5 MCV 74.1 L MCH 24.1 L MCHC 32.6 L RDW 15.6 H Plt Count 352 MPV 8.0 Neut % (Auto) 57.0 Lymph % (Auto) 30.3 [place] % (Auto) 6.6 Eos % (Auto) 4.8 H Baso % (Auto) 1.3 Neut # (Auto) 6.4 Lymph # (Auto) 3.4 [place] # (Auto) 0.7 Eos # (Auto) 0.5 Baso # (Auto) 0.1 PT 13.7 H INR 1.2 APTT 31.3 Sodium 145 Potassium 4.1 Chloride 106 Carbon Dioxide 27 Anion Gap 16 BUN 12 Creatinine 0.8 Est GFR ( Amer) > 60 Est GFR (Non-Af Amer) > 60 Random Glucose 93 Calcium 9.3 Total Bilirubin 0.5 AST 29 ALT 42 Alkaline Phosphatase 79 Total Protein 7.6 Albumin 4.0 Globulin 3.5 Albumin/Globulin Ratio 1.1 05/25/17 05/25/17 05:55 05:55 WBC 13.8 H RBC 4.72 Hgb 11.7 L Hct 34.8 L MCV 73.6 L MCH 24.9 L MCHC 33.8 RDW 15.6 H Plt Count 348 MPV 7.7 Neut % (Auto) 46.6 L Lymph % (Auto) 41.6 H [place] % (Auto) 6.7 Eos % (Auto) 4.0 Baso % (Auto) 1.1 Neut # (Auto) 6.4 Lymph # (Auto) 5.8 H [place] # (Auto) 0.9 H Eos # (Auto) 0.6 Baso # (Auto) 0.2 PT INR APTT Sodium 141 Potassium 3.9 Chloride 104 Carbon Dioxide 26 Anion Gap 15 BUN 15 Creatinine 0.9 Est GFR ( Amer) > 60 Est GFR (Non-Af Amer) > 60 Random Glucose 95 Calcium 8.5 Total Bilirubin 0.3 AST 28 ALT 31 Alkaline Phosphatase 72 Total Protein 6.6 Albumin 3.5 Globulin 3.1 Albumin/Globulin Ratio 1.1 Assessment & Plan (1) MRSA (methicillin resistant staph aureus) culture positive Assessment and Plan: id vanco x 8 wks Status: Acute (2) Ankle fracture, left Assessment and Plan: podiatry pain control cm consult Status: Acute (3) DVT prophylaxis Assessment and Plan: scd nad ae hose ambulation Status: Acute Decision To Admit - Pt Status Changed To: Hospital Disposition Of: Inpatient - Admit Certification Admit to Inpatient:: After my assessment, the patient will require hospitalization for at least two midnights. This is because of the severity of symptoms shown, intensity of services needed, and/or the medical risk in this patient being treated as an outpatient. - . Bed Request Type: Med/Surg Admitting Physician: Keshav Greenwood
[2017-05-25 08:22] VITALS: BP 129/84; PULSE 70; RESP 18; TEMP 98.2; O2SAT 98
--- NOTE | 2017-05-25 08:24 | CP.PCM.PN ---
Subjective - Date & Time of Evaluation Date of Evaluation: 05/25/17 Time of Evaluation: 08:50 - Subjective Subjective: Progress note - Dr. Sanchze 31 year old male with no significant PMHx seen and evaluated in ED 4 days s/p left ankle painful hardware removal. Patient is AAOx3 and is in NAD. Patient denies of any acute overnight events. Reports that he has little pain every now and then but is managing it well with medications. Patient denies of overnight F /N/V/C/SOB/CP/headache. Denies of any other pedal complains at this time. Objective - Vital Signs/Intake and Output Vital Signs (last 24 hours): Temp Pulse Resp BP Pulse Ox 98.2 F 70 18 129/84 98 05/25/17 08:22 05/25/17 08:22 05/25/17 08:22 05/25/17 08:22 05/25/17 08:22 - Medications Medications: Current Medications Vancomycin HCl 1 gm/ Sodium (Chloride) 250 mls @ 166.667 mls/hr IVPB Q12@0300, 1500 JASSI PRN Reason: Protocol Last Admin: 05/25/17 02:31 Dose: 166.667 mls/hr Ibuprofen (Motrin Tab) 800 mg PO Q8H PRN PRN Reason: Pain, moderate (4-7) Oxycodone/Acetaminophen (Percocet 5/325 Mg Tab) 1 tab PO Q8H PRN PRN Reason: Pain, severe (8-10) Stop: 05/27/17 20:46 Last Admin: 05/24/17 14:47 Dose: 1 tab Oxycodone/Acetaminophen (Percocet 5/325 Mg Tab) 1 tab PO Q4 PRN PRN Reason: Pain, moderate (4-7) Stop: 05/27/17 20:52 Last Admin: 05/25/17 05:28 Dose: 1 tab Oxycodone/Acetaminophen (Percocet 5/325 Mg Tab) 2 tab PO Q4 PRN PRN Reason: Pain, severe (8-10) Stop: 05/27/17 22:59 Last Admin: 05/25/17 01:17 Dose: 2 tab - Labs Labs: 05/25/17 05:55 05/25/17 05:55 PT 13.7 Seconds (9.8-13.1) H 05/24/17 12:10 INR 1.2 (0.9-1.2) 05/24/17 12:10 APTT 31.3 Seconds (25.6-37.1) 05/24/17 12:10 - Constitutional Appears: Well, Non-toxic, No Acute Distress - Extremities Exam Additional comments: Dressing is clean, dry and intact. No strike through is noted from the dressing AROM at MTPJ is intact; Cap refill time: < 3 sec to all digits - Neurological Exam Neurological Exam: Alert, Awake, Oriented x3 - Psychiatric Exam Psychiatric exam: Normal Affect, Normal Mood Assessment and Plan - Assessment and Plan (Free Text) Assessment: 31 year old male with no significant PMHx was evaluated in ED 4 days s/p left ankle painful hardware removal Plan: Patient seen and evaluated at bedside Discussed patient in details with attending Dr. Sanchez Labs, vitals and charts reviewed - afebrile WBC @ 13.8 Intra-op wound culture shows MRSA (05/20) - Suspicious of OM due to bone quality intra-op Patient received PICC line for alf IV abx ID consult placed - Dr. Currie, recommendations appreciated Patient is stable from podiatry standpoint Podiatry to follow patient while in house - once discharged from the hospital, follow up with Dr. Sanchez in his office
--- NOTE | 2017-05-25 10:31 | VASCULAR ---
PROCEDURE: Date of procedure: 05/24/2017 Procedure: 1. Placement of a right arm PICC with ultrasound and fluoroscopic guidance, CPT 68192 2. PICC tip confirmation with spot radiograph and is in the superior vena cava Medications: 1 percent lidocaine Total Fluoro time: 2.9 seconds Radiation: 0.44 MGy EBL: 2 cc HISTORY: Infection requiring long-term IV antibiotics TECHNIQUE: Following informed consent and procedure time-out, the patient was placed supine on the interventional table and the right arm prepped and draped in the usual sterile fashion. Ultrasound showed a patent and compressible right basilic vein. After the skin was anesthetized with lidocaine, the basilic vein was accessed with micro micropuncture technique using ultrasound guidance. A guidewire was then advanced under fluoroscopic guidance into the superior vena cava. An image documenting ultrasound guidance for vascular access was permanently saved. The length of the single-lumen 4 [place] PICC was trimmed to 37 centimeters and advanced through a peel-away sheath. The PICC was position with tip of PICC confirm a spot radiograph the superior vena cava. The PICC was secured to the patient's skin. The PICC was flushed. A biopatch and sterile dressing was applied. IMPRESSION: Placement of a single-lumen 4 [place] PICC trimmed to 37 centimeters via right basilic vein. The tip of the PICC is confirmed with spot radiograph and is in the superior vena cava.
--- NOTE | 2017-05-25 12:46 | CP.PCM.CON ---
History of Present Illness - History of Present Illness History of Present Illness: 31 year old male with no significant PMHx seen and evaluated in ED 3 days s/p left ankle painful hardware removal. 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 CULTURES FROM OR GREW MRSA A LATE MANIFESTATION OF LEFT ANKLE FX 2016 HAD ALL HARDWARE REMOVED LAST TUESDAY Patient denies of any recent F/N/V/C/SOB/CP today. Patient reports of mild pain to his ankle but he is managing it well with medications. Patient denies of any other pedal complains at this time. PMHx: Denies PSHx: ORIF LEFT ANKLE FX 03/2016 Allergies: nuts Review of Systems - Review of Systems All systems: reviewed and no additional remarkable complaints except - Constitutional Constitutional: As Per HPI - EENT Eyes: absent: As Per HPI, Blind Spots, Blurred Vision, Change in Vision, Decreased Night Vision, Diplopia, Discharge, Dry Eye, Exophthalmos, Floaters, Irritation, Itchy Eyes, Loss of Peripheral Vision, Pain, Photophobia, Requires Corrective Lenses, Sees Flashes, Spots in Vision, Tunnel Vision, Other Visual Disturbances, Loss of Vision, Other Ears: absent: As Per HPI, Decreased Hearing, Ear Discharge, Ear Pain, Tinnitus, Abnormal Hearing, Disequilibrium, Dizziness, Other Nose/Mouth/Throat: absent: As Per HPI, Epistaxis, Nasal Congestion, Nasal Discharge, Nasal Obstruction, Nasal Trauma, Nose Pain, Post Nasal Drip, Sinus Pain, Sinus Pressure, Bleeding Gums, Change in Voice, Dental Pain, Dry Mouth, Dysphagia, Halitosis, Hoarsness, Lip Swelling, Mouth Lesions, Mouth Pain, Odynophagia, Sore Throat, Throat Swelling, Tongue Swelling, Facial Pain, Neck Pain, Neck Mass, Other - Cardiovascular Cardiovascular: absent: As Per HPI, Acrocyanosis, Chest Pain, Chest Pain at Rest , Chest Pain with Activity, Claudication, Diaphoresis, Dyspnea, Dyspnea on Exertion, Edema, Irregular Heart Rhythm, Pain Radiating to Arm/Neck/Jaw, Leg Edema, Leg Ulcers, Lightheadedness, Orthopnea, Palpitations, Paroxysmal Nocturnal Dyspnea, Pedal Edema, Radiating Pain, Rapid Heart Rate, Slow Heart Rate, Syncope, Other - Respiratory Respiratory: absent: As Per HPI, Cough, Dyspnea, Hemoptysis, Dyspnea on Exertion , Wheezing, Snoring, Stridor, Pain on Inspiration, Chest Congestion, Excessive Mucous Production, Change in Mucous Color, Pain with Coughing, Other - Gastrointestinal Gastrointestinal: absent: As Per HPI, Abdominal Pain, Belching, Bloating, Change in Bowel Habits, Change in Stool Character, Coffee Ground Emesis, Constipation, Cramping, Diarrhea, Dyspepsia, Dysphagia, Early Satiety, Excessive Flatus, Fecal Incontinence, Heartburn, Hematemesis, Hematochezia, Loose Stools, Melena, Nausea, Odynophagia, Temesmus, Vomiting, Other - Genitourinary Genitourinary: absent: As Per HPI, Change in Urinary Stream, Difficulty Urinating, Dysuria, Flank Pain, Hematuria, Pyuria, Nocturia, Urinary Incontinence, Urinary Frequency, Urinary Hesitance, Urinary Urgency, Voiding Freq/Small Amts, Freq UTI, Hx Renal/Bladder Calculi, Hx /Renal Surgery, Bladder Distension, Other - Musculoskeletal Musculoskeletal: As Per HPI - Integumentary Integumentary: absent: As Per HPI, Acne, Alopecia, Bleeding Lesions, Change in Hair, Change in Nails, Change in Pigmentation, Changing Lesions, Dry Skin, Erythema, Furuncle, Hirsutism, Lesions, New Lesions, Non-Healing Lesions, Photosensitivity, Pruritus, Rash, Skin Pain, Skin Ulcer, Sores, Striae, Swelling , Unusual Bruising, Wounds, Jaundice, Other - Neurological Neurological: absent: As Per HPI, Abnormal Gait, Abnormal Hearing, Abnormal Movements, Abnormal Speech, Behavioral Changes, Burning Sensations, Confusion, Convulsions, Disequilibrium, Dizziness, Numbness, Focal Weakness, Frequent Falls , Headaches, Lack of Coordination, Loss of Vision, Memory Loss, Paresthesias, Radicular Pain, Restless Legs, Sensory Deficit, Syncope, Tingling, Tremor, Vertigo, Weakness, Other Visual Disturbances, Other - Psychiatric Psychiatric: absent: As Per HPI, Abnormal Sleep Pattern, Anhedonia, Anxiety, Auditory Hallucinations, Behavioral Changes, Change in Appetite, Change in Libido, Confusion, Depression, Difficulty Concentrating, Hallucinations, Homicidal Ideation, Hopelessness, Irritability, Memory Loss, Mood Swings, Panic Attacks, Paranoia, Suicidal Ideation, Visual Hallucinations, Tactile Hallucinations, Other - Endocrine Endocrine: absent: As Per HPI, Change in Body Appearance, Change in Libido, Cold Intolorance, Deepening of Voice, Excessive Sweating, Fatigue, Flushing, Heat Intolorance, Increase in Ring/Shoe/Hat Size, Palpitations, Polydipsia, Polyphagia, Polyuria, Other - Hematologic/Lymphatic Hematologic: absent: As Per HPI, Easy Bleeding, Easy Bruising, Lymphadenopathy, Other Past Patient History - Tetanus Immunizations Tetanus Immunization: Unknown - Past Medical History & Family History Past Medical History?: Yes - Past Social History Smoking Status: Current Some Days Smoker - CARDIAC Hx Cardiac Disorders: No - PULMONARY Hx Respiratory Disorders: Yes Hx Asthma: Yes - NEUROLOGICAL Hx Neurological Disorder: No - HEENT Hx HEENT Problems: No - RENAL Hx Chronic Kidney Disease: No - ENDOCRINE/METABOLIC Hx Endocrine Disorders: No - HEMATOLOGICAL/ONCOLOGICAL Hx Blood Disorders: No - INTEGUMENTARY Hx Dermatological Problems: No - MUSCULOSKELETAL/RHEUMATOLOGICAL Hx Musculoskeletal Disorders: No Hx Falls: No - GASTROINTESTINAL Hx Gastrointestinal Disorders: No - GENITOURINARY/GYNECOLOGICAL Hx Genitourinary Disorders: No - PSYCHIATRIC Hx Psychophysiologic Disorder: No Hx Substance Use: No - SURGICAL HISTORY Hx Surgeries: Yes Hx Orthopedic Surgery: Yes (left foot) Other/Comment: removal of screw left ankle,metal placed on left tibia - ANESTHESIA Hx Anesthesia: Yes Hx Anesthesia Reactions: No Hx Malignant Hyperthermia: No Meds Home Medications: Home Medication List Medication Instructions Recorded Confirmed Type Ibuprofen [Motrin Tab] 800 mg PO Q8H PRN #20 tab 05/25/17 Rx Vancomycin/0.9 % Sod Chloride 1 gm IV Q12 #112 plast..bag 05/25/17 Rx [Vanco 1 Gram/250 ml-0.9% NaCl] oxyCODONE/Acetaminophen [Percocet 1 tab PO Q4 PRN #10 tab 05/25/17 Rx 5/325 mg Tab] Allergies/Adverse Reactions: Allergies Allergy/AdvReac Type Severity Reaction Status Date / Time nut - unspecified Allergy ANAPHYLAXIS Verified 05/24/17 11:11 shellfish derived Allergy ANAPHYLAXIS Verified 05/24/17 11:11 - Medications Medications: Current Medications Vancomycin HCl 1 gm/ Sodium (Chloride) 250 mls @ 166.667 mls/hr IVPB Q12@0300, 1500 JASSI PRN Reason: Protocol Last Admin: 05/25/17 02:31 Dose: 166.667 mls/hr Ibuprofen (Motrin Tab) 800 mg PO Q8H PRN PRN Reason: Pain, moderate (4-7) Oxycodone/Acetaminophen (Percocet 5/325 Mg Tab) 1 tab PO Q8H PRN PRN Reason: Pain, severe (8-10) Stop: 05/27/17 20:46 Last Admin: 05/24/17 14:47 Dose: 1 tab Oxycodone/Acetaminophen (Percocet 5/325 Mg Tab) 1 tab PO Q4 PRN PRN Reason: Pain, moderate (4-7) Stop: 05/27/17 20:52 Last Admin: 05/25/17 10:35 Dose: 1 tab Oxycodone/Acetaminophen (Percocet 5/325 Mg Tab) 2 tab PO Q4 PRN PRN Reason: Pain, severe (8-10) Stop: 05/27/17 22:59 Last Admin: 05/25/17 01:17 Dose: 2 tab Physical Exam - Constitutional Appears: Non-toxic, Chronically Ill - Head Exam Head Exam: NORMOCEPHALIC - Eye Exam Eye Exam: PERRL. absent: Scleral icterus - ENT Exam ENT Exam: Mucous Membranes Dry, Normal External Ear Exam - Neck Exam Neck exam: Negative for: Lymphadenopathy - Respiratory Exam Respiratory Exam: Decreased Breath Sounds - Cardiovascular Exam Cardiovascular Exam: REGULAR RHYTHM - GI/Abdominal Exam GI & Abdominal Exam: Diminished Bowel Sounds, Soft. absent: Tenderness - Rectal Exam Rectal Exam: Deferred - Exam Exam: NORMAL INSPECTION - Extremities Exam Extremities exam: Positive for: pedal edema, tenderness, pedal pulses present. Negative for: calf tenderness, normal inspection Additional comments: LEFT ANKLE IN SOFT CAST - Back Exam Back exam: absent: CVA tenderness (L), CVA tenderness (R) - Neurological Exam Neurological exam: Alert, CN II-XII Intact, Oriented x3, Reflexes Normal - Psychiatric Exam Psychiatric exam: Normal Mood - Skin Skin Exam: Dry Results - Vital Signs Recent Vital Signs: Last Vital Signs Temp 98.2 F 05/25/17 08:22 Pulse 70 05/25/17 08:22 Resp 18 05/25/17 08:22 BP 129/84 05/25/17 08:22 Pulse Ox 98 05/25/17 08:22 - Labs Result Diagrams: 05/25/17 05:55 05/25/17 05:55 Labs: Laboratory Results - last 24 hr 05/24/17 05/25/17 05/25/17 12:10 05:55 05:55 WBC 13.8 H RBC 4.72 Hgb 11.7 L Hct 34.8 L MCV 73.6 L MCH 24.9 L MCHC 33.8 RDW 15.6 H Plt Count 348 MPV 7.7 Neut % (Auto) 46.6 L Lymph % (Auto) 41.6 H [place] % (Auto) 6.7 Eos % (Auto) 4.0 Baso % (Auto) 1.1 Neut # (Auto) 6.4 Lymph # (Auto) 5.8 H [place] # (Auto) 0.9 H Eos # (Auto) 0.6 Baso # (Auto) 0.2 PT 13.7 H INR 1.2 APTT 31.3 Sodium 141 Potassium 3.9 Chloride 104 Carbon Dioxide 26 Anion Gap 15 BUN 15 Creatinine 0.9 Est GFR ( Amer) > 60 Est GFR (Non-Af Amer) > 60 Random Glucose 95 Calcium 8.5 Total Bilirubin 0.3 AST 28 ALT 31 Alkaline Phosphatase 72 Total Protein 6.6 Albumin 3.5 Globulin 3.1 Albumin/Globulin Ratio 1.1 Assessment & Plan (1) MRSA (methicillin resistant staph aureus) culture positive Status: Acute (2) Ankle fracture, left Status: Acute - Assessment and Plan (Free Text) Assessment: S/P REMOVAL OF HARDWARE WITH MRSA FROM WOUND WILL NEED 6-8 WEEKS IV RX MAY NEED CUBICIN RX IF VANCO LEVELS CANT BE PROPERLY MMAINTAINED OR IF TOXICITY DEVELOPS OR IF ANTIBIOTIC REGIMEN FAILS NEEDS CBC, CMP, CRP, ESR WEEKLY WITH WOUND CHECKS PROGNOSIS GUARDED- MAY DEVELOP FROZEN ANKLE AND OR CHRONIC OM WHICH COULD POTENTIALLY AFFECT LIMB VIABILITY
== END 2017-05-25 16:15 | disposition home or self-care (01) | DRG 418 ==
LOC: H.ER 10:14 → H.ERHOLD 12:33 → H.MEDSURG1 22:50
PROVIDERS: ADMIT Nurse Practitioner Adult Health; ATTEND Nurse Practitioner Adult Health
PROC: 02HV33Z Insertion of Infusion Device into Superior Vena Cava, Percutaneous Approach (ICD-10-PCS; principal; 2017-05-24)
DX: T81.4XXA Infection following a procedure, initial encounter (principal); F17.200 Nicotine dependence, unspecified, uncomplicated; B95.62 Methicillin resistant Staphylococcus aureus infection as the cause of diseases classified elsewhere; Y83.8 Other surgical procedures as the cause of abnormal reaction of the patient, or of later complication, without mention of misadventure at the time of the procedure; Z91.013 Allergy to seafood; Z91.018 Allergy to other foods; J45.909 Unspecified asthma, uncomplicated; L08.89 Other specified local infections of the skin and subcutaneous tissue